=== PATIENT | male | born 1970 | race Caucasian/White ===

== ENCOUNTER 2024-04-01 08:29 | Observation (INO) ==
[2024-04-01 09:11] LABS: Rapid COVID-19 Molecular Undetected (Undetected)
[2024-04-01] MEDS ORDERED: Rocuronium 50 mg VIAL 10 mg/ml 5 ml VIAL (50 mg) ONE ×2 (09:18→11:57)
[2024-04-01] MEDS ORDERED: Ondansetron 4 mg VIAL 2 MG/ML 2 ml VIAL ONE ×2 (09:18→15:25)
[2024-04-01] MEDS ORDERED: fentaNYL 100 mcg/2 ml 50 MCG/ML VIAL ONE ×2 (09:18→15:25)
[2024-04-01] MEDS ORDERED: Lidocaine 2% PF 5 ML VIAL ONE (09:18)
[2024-04-01] MEDS ORDERED: Propofol 10 MG/ML 20 ML BTL ONE (09:18)
[2024-04-01] MEDS ORDERED: Midazolam 2 mg/2 ml VIAL 1 mg/ml 2 ml VIAL (2 mg) ONE (09:19)
[2024-04-01] MEDS ORDERED: Famotidine IV 10 MG/ML 2 ml VIAL (20 mg) ONE (09:27)
[2024-04-01] MEDS ORDERED: ceFAZolin 2 GM PREMIX 2 GM/50 ML BAG ONE (09:27)
[2024-04-01] MEDS ORDERED: Dexamethasone IV 4 MG/ML VIAL 1 ml VIAL ONE (09:27)
[2024-04-01] MEDS ORDERED: Naloxone 0.4 mg VIAL 0.4 mg/ml 1 ml VIAL IV PRN (09:35)
[2024-04-01] MEDS ORDERED: Morphine 4 MG/ML VIAL (1 ml) IV PRN (09:35)
[2024-04-01] MEDS: Lactated Ringers 1000 ml BAG 1,000 ML IV SCH ×2 (09:42→17:10)
[2024-04-01] MEDS: Buffered Lidocaine 1% SYRIN 1 ml INTRADERM ONE (09:42)
[2024-04-01] MEDS: Dexamethasone IV 4 MG/ML VIAL 1 ml VIAL IV SLOW PU ONE (09:42)
[2024-04-01] MEDS: Famotidine IV 10 MG/ML 2 ml VIAL (20 mg) IV ONE (09:42)
[2024-04-01] MEDS ORDERED: Bupivacaine 0.25% EPI 200,000 30 ML SDV ONE (10:09)
[2024-04-01] MEDS ORDERED: HYDROmorphone 0.5 MG/0.5 ML SYRINGE ONE ×2 (12:25→13:59)
[2024-04-01] MEDS ORDERED: HYDROcodone/ACET. 7.5/325 LIQ 15 ML UDC PO PRN (14:30)
[2024-04-01] MEDS ORDERED: HYDROmorphone 1 MG/1 ML SYRINGE IV SLOW PU PRN (14:30)
[2024-04-01] MEDS ORDERED: HYDROmorphone 0.5 MG/0.5 ML SYRINGE IV SLOW PU PRN (14:30)
[2024-04-01] MEDS ORDERED: Metoclopramide 5 MG/ML VIAL (10 mg) ONE (15:25)
[2024-04-01] MEDS: Metoclopramide 5 MG/ML VIAL (10 mg) IV PRN (15:32)
[2024-04-01] MEDS: fentaNYL 100 mcg/2 ml 50 MCG/ML VIAL IV PRN (15:32)
[2024-04-01] MEDS: Ondansetron 4 mg VIAL 2 MG/ML 2 ml VIAL IV PRN (15:32)
[2024-04-01] MEDS ORDERED: Prochlorperazine 5 mg/ml 2 ml VIAL (10 mg) ONE (16:40)
[2024-04-01] MEDS: Prochlorperazine 5 mg/ml 2 ml VIAL (10 mg) IV PRN (16:41)
[2024-04-01] MEDS: Acetaminophen IV 1 GM/100ML 1,000 MG/100 ML BAG IV SCH (17:27)
[2024-04-01] MEDS: Pantoprazole VIAL 40 MG VIAL IV SCH (17:27)
[2024-04-01] MEDS: Fluticasone NASAL SPRAY 50MCG 16 gm SPRAY BTL BOTH NARES SCH (22:31)
[2024-04-01] MEDS: Heparin 5000 UNITS/ML 1 mL VIAL SUBCUT SCH (22:31)
[2024-04-02 10:37] VITALS: BP 137/75
== END 2024-04-02 13:50 | disposition home or self-care (01) ==
LOC: SSU 08:29 → OR 08:29
PROVIDERS: ADMIT Surgery; ATTEND Surgery